=== PATIENT | male | born 1985 | race Caucasian/White ===

== ENCOUNTER 2020-02-11 12:57 | Emergency (ER) | payer OTHER ==
[~2020-02-11] VITALS: Ht 180.3 cm; Wt 55.0 kg
[2020-02-11] MEDS ORDERED: ketorolac tromethamine 15mg/ml inj. IV ONE (13:25)
[2020-02-11 13:32] LABS: BASOPHILS % (AUTO) 0.5 % (0-1); EOSINOPHILS # (AUTO) 0.1 X10'3 (0-0.9); HEMATOCRIT 47.5 % (42.0-52.0); HEMOGLOBIN 16.2 g/dl (14.0-17.9); LYMPHOCYTES # (AUTO) 2.2 X10'3 (1.1-4.8); LYMPHOCYTES % (AUTO) 27.5 % (21-51); MEAN CORPUSCULAR HGB CONC 34.1 g/dL (33.0-36.5); MEAN PLATELET VOLUME 8.4 FL (7.4-10.4); MONOCYTES # (AUTO) 0.5 X10'3 (0-0.9); MONOCYTES % (AUTO) 5.7 % (2-12); NEUTROPHILS # (AUTO) 5.3 X10'3 (1.8-7.7); NEUTROPHILS % (AUTO) 65.3 % (42-75); PLATELET COUNT 173 X10'3 (140-440); WHITE BLOOD COUNT 8.1 X10'3 (4.5-11.0)
[2020-02-11] MEDS ORDERED: normal saline 1000ML IV soln IVB ONE (13:40)
[2020-02-11 13:43] LABS: ALANINE AMINOTRANSFERASE 121 U/L (12-78); ALBUMIN 4.1 G/DL (3.4-5.0); ALBUMIN/GLOBULIN RATIO 1.1 (1.1-1.5); ALKALINE PHOSPHATASE 87 IU/L (46-116); ANION GAP 11 (8-16); ASPARTATE AMINO TRANSFERASE 35 U/L (10-37); BILIRUBIN,TOTAL 0.5 MG/DL (0.1-1.0); BLOOD UREA NITROGEN 17 MG/DL (7-18); BUN/CREATININE RATIO 14.9 (5.4-32.0); C-REACTIVE PROTEIN 0.05 MG/DL (0.0-0.5); CALCIUM 9.6 MG/DL (8.5-10.1); CHLORIDE 105 MMOL/L (99-107); CREATININE 1.14 MG/DL (0.60-1.10); GLUCOSE 127 MG/DL (70-104); LIPASE 223 U/L (73-393); POTASSIUM 3.9 MMOL/L (3.5-5.1); SODIUM 140 MMOL/L (135-145); TOTAL CARBON DIOXIDE 24.4 MMOL/L (24-32); TOTAL PROTEIN 7.9 G/DL (6.4-8.2); eGFR 74 ML/MIN
[2020-02-11 14:22] VITALS: BP 114/78
[2020-02-11 14:57] LABS: CLARITY,URINE CLOUDY (Clear); COLOR,URINE YELLOW (Yellow); GLUCOSE, URINE NEGATIVE (Neg); KETONES,URINE >=80 mg/dl (Neg); LEUKOCYTE ESTERASE ,URINE TRACE (Neg); NITRITES, URINE NEGATIVE (Neg); OCCULT BLOOD,URINE LARGE (Neg); PROTEIN,URINE 30 mg/dl (Neg); UROBILINOGEN,URINE 0.2 E.U/dL (0.2-1.0)
[2020-02-11 14:58] LABS: UA COLLECTION TYPE CLN CATCH MIDSTREAM
[2020-02-11 15:06] LABS: BACTERIA,URINE FEW /HPF (Neg); MUCUS STRANDS FEW /LPF (Neg); RBC,URINE TNTC /HPF (0-2); SQUAMOUS EPITHELIAL CELL,UR NONE SEEN /LPF (FEW); WBC,URINE 0-4 /HPF (0-4)
[2020-02-11] MEDS ORDERED: FLO0.4C PO (15:06)
[2020-02-11] MEDS ORDERED: IBUP-1984 PO (15:06)
[2020-02-11] MEDS ORDERED: ONDA4TAB6 PO (15:06)
== END 2020-02-11 15:21 | disposition home or self-care (01) ==
LOC: ER 12:58
DX: N20.0 Calculus of kidney (principal); R10.31 Right lower quadrant pain; J45.909 Unspecified asthma, uncomplicated; Z79.899 Other long term (current) drug therapy
CPT/HCPCS: 36415; 74176; 80053; 81001; 83690; 85025; 86140; 87088; 96374; 99284; J1885; J7030